=== PATIENT | female | born 2000 | race Hispanic/Latino ===

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

== ENCOUNTER 2022-05-14 21:02 | Emergency (ER) | payer OTHER, BC ==
[2022-05-14] MEDS ORDERED: traMADol HCl 50 MG TAB ONE (22:40)
[2022-05-14] MEDS ORDERED: Orphenadrine Citrate 60 MG/2 ML VIAL ONE (22:40)
[2022-05-14 23:28] LABS: Bilirubin Negative (Negative); Blood, Urine Negative (Negative); Clarity Clear (Clear); Glucose, Urine (Dipstick) Negative (Negative); Ketone, Urine Negative (Negative); Leukocyte Negative (Negative); Nitrite Negative (Negative); Protein, Urine (Dipstick) 30 mg/dL (Neg-Trace); pH, Urine 5.5 (5.0-9.0)
[2022-05-14 23:30] LABS: Pregnancy Test - Urine (BHCG) Negative (Negative); Specific Gravity 1.035 (1.002-1.036); Specific Gravity, Urine 1.035 (1.002-1.036)
[2022-05-14 23:31] LABS: Pregu Control Background? CLEAR/WHITE (CLR/WHITE); Pregu Control Bar Appear? YES (CONTROL BAR)
[2022-05-14 23:33] LABS: Bacteria/HPF 2+ HPF (None Seen)
[2022-05-15] MEDS ORDERED: Ondansetron ODT 4 MG TAB ONE (00:10)
[2022-05-15] MEDS ORDERED: diphenhydrAMINE 50 MG/ML VIAL ONE (00:30)
== END 2022-05-15 01:00 | disposition home or self-care (01) ==
LOC: NAV ERS 21:02
DX: S39.012A Strain of muscle, fascia and tendon of lower back, initial encounter (principal); L29.9 Pruritus, unspecified; T50.905A Adverse effect of unspecified drugs, medicaments and biological substances, initial encounter; W01.0XXA Fall on same level from slipping, tripping and stumbling without subsequent striking against object, initial encounter
CPT/HCPCS: 72131; 81001; 81025; 96372; J1200; J2360; Q0162